=== PATIENT | female | born 1955 | race Caucasian/White ===

== ENCOUNTER 2016-11-19 10:59 | Emergency (ER) | payer SELFPAY ==
[~2016-11-19] VITALS: Ht 152.4 cm; Wt 85.7 kg
[2016-11-19] MEDS ORDERED: [UNRECOGNIZED DRUG - REMARK] (11:04)
[2016-11-19 13:25] VITALS: BP 138/92
== END 2016-11-19 13:25 | disposition home or self-care (01) ==
LOC: ER 11:01
DX: R07.9 Chest pain, unspecified (principal); R51 Headache; I10 Essential (primary) hypertension; V43.62XA Car passenger injured in collision with other type car in traffic accident, initial encounter; Y93.89 Activity, other specified; Y92.488 Other paved roadways as the place of occurrence of the external cause; Y99.8 Other external cause status
CPT/HCPCS: 70450; 71020; 99284; A4606; Z7610